=== PATIENT | male | born 1970 | race Caucasian/White ===

== ENCOUNTER → 2020-02-06 13:55 | Outpatient (BNVA) | payer OTHER, SELFPAY | PROVIDERS: Visit Provider Physician Assistant | DX: M17.31 Unilateral post-traumatic osteoarthritis, right knee (principal); T14.90XS Injury, unspecified, sequela | CPT/HCPCS: 20610; 99212; J1020 ==

== ENCOUNTER → 2020-03-12 13:54 | Outpatient (BNVA) | payer OTHER, SELFPAY | PROVIDERS: PCP Internal Medicine; Visit Provider Physician Assistant | DX: M17.31 Unilateral post-traumatic osteoarthritis, right knee (principal) | CPT/HCPCS: 99212 ==

== ENCOUNTER 2020-04-15 12:57 | Outpatient (REF) | payer BC, SELFPAY | END 2020-04-15 12:58 | disposition home or self-care (01) | LOC: HO.LAB 12:57 | PROVIDERS: Visit Provider Internal Medicine | DX: Z20.828 Contact with and (suspected) exposure to other viral communicable diseases (principal) | CPT/HCPCS: 36415; C9803; U0003 ==

== ENCOUNTER 2020-04-16 17:36 | Outpatient (REF) | payer OTHER, BC, SELFPAY ==
--- NOTE | 2020-04-16 17:38 | MR_ITS ---
EXAMINATION: MR KNEE WITHOUT CONTRAST, RIGHT CLINICAL INFORMATION: M17.31 - Unilateral post-traumatic osteoarthritis, right knee. Medial pain with surgery on 11/11/2019. COMPARISON: Radiographs dated 11/14/2019 TECHNIQUE: MRI of the knee without contrast was performed using routine sequences on a high-field scanner. FINDINGS: MENISCI: Medial Meniscus: There is a radially-oriented tear at the junction of the body and posterior horn with a subtle horizontal component extending to the meniscal body. The radial tear spares the free edge margin, primarily involving the superior third of the meniscal cross-section. There is 2.5 x 1.5 x 0.9 cm multilocular cyst arising at the anterior root insertion. Lateral Meniscus: Intact. LIGAMENTS: Cruciate: Intact. Collateral: Intact. EXTENSOR MECHANISM: Patellar enthesopathic spurs are present at the quadriceps tendon insertion and patellar tendon origin. No tendinosis. Quadriceps and patellar tendons are intact. ARTICULAR CARTILAGE/BONE: Patellofemoral Compartment: A full-thickness chondral fissure is present at the medial patellar facet, measuring 6 mm in length. Small marginal osteophytes are present. Mild nonuniform chondral thinning is evident at the lateral patellar facet and at the central trochlear groove with full-thickness chondral fissuring at the medial patellar facet. Medial Compartment: At the medial femoral condyle weightbearing surface, there is a 2 x 1 cm area of full-thickness chondral fissuring, partial-thickness chondral delamination, and partial-thickness cartilage loss with more mild surrounding chondral thinning. Mild chondral thinning is also present in the medial tibial plateau. Small marginal osteophytes. Lateral Compartment: Normal. JOINT FLUID AND BURSAE: Trace joint effusion. No Arenas's cyst. MR/MR knee RT wo con IMPRESSION: 1. Mildly complex radial tear at the junction of the posterior horn and body of the medial meniscus. 2. Mild medial and minimal patellofemoral compartment osteoarthritis. 3. Trace joint effusion.
== END 2020-04-16 17:37 | disposition home or self-care (01) ==
LOC: HO.MRI 17:36
PROVIDERS: Visit Provider Physician Assistant
DX: M17.31 Unilateral post-traumatic osteoarthritis, right knee (principal)
CPT/HCPCS: 73721

== ENCOUNTER 2020-04-20 11:22 | Emergency (ER) | payer BC, SELFPAY ==
--- NOTE | 2020-04-20 11:31 | XR_ITS ---
EXAMINATION: XR CHEST CLINICAL INFORMATION: Cough COMPARISON: None TECHNIQUE: Frontal view of the chest was obtained. FINDINGS: No significant abnormality is noted involving the heart, lungs, mediastinum, bony thorax or soft tissues. XR/XR chest 1V IMPRESSION: Unremarkable examination.
--- NOTE | 2020-04-20 11:31 | ED.URI ---
HPI - URI/Sore Throat General Chief Complaint: Dyspnea Stated Complaint: Cough Time Seen by Provider: 04/20/20 11:31 Source: patient Mode of arrival: ambulatory Limitations: no limitations History of Present Illness HPI Narrative: States he was here 5 days ago got COVID test for mild body aches those symptoms improve still waiting for COVID test results and ever since then he has had a cough with associated aches and pains. MD elicited complaint: cough Severity: moderate Exacerbating factors: nothing Treatments prior to arrival: none Related Data Home Medications Medication Instructions Recorded Confirmed atorvastatin 20 mg tablet 20 mg PO DAILY 02/06/20 lisinopril 5 mg tablet 5 mg PO DAILY 02/06/20 metformin 500 mg tablet 500 mg PO DAILY 02/06/20 Previous Rx's Medication Instructions Recorded celecoxib 200 mg capsule 200 mg PO DAILY 30 Days #30 cap 03/12/20 albuterol sulfate 2.5 mg INHALATION Q4-6H PRN #15 ml 04/20/20 azithromycin [Zithromax Z-Jakob] 250 mg PO DAILY 5 Days #6 tab 04/20/20 prednisone 40 mg PO DAILY 5 Days #10 tab 04/20/20 Allergies Allergy/AdvReac Type Severity Reaction Status Date / Time pollen extracts [POLLEN] Allergy Unknown UNK Verified 03/12/20 14:12 Review of Systems Review of Systems: Constitutional: No Weight loss, No Fever, No Chills, No Night Sweats, No Fatigue, No Malaise ENT/Mouth: No Hearing loss, No Ear Pain, No Nasal Congestion, No Sinus Pain, No Hoarseness, No sore throat, No Rhinorrhea, No Swallowing Difficulty Eyes: No Eye Pain, No Swelling, No Redness, No Foreign Body, No Discharge, No Vision Changes Cardiovascular: No Chest Pain, No SOB, No Dyspnea on Exertion, No Orthopnea, No Edema, No Palpitations Respiratory: + Cough, No Sputum, No Wheezing, No Smoke Exposure, No Dyspnea Gastrointestinal: No Nausea, No Vomiting, No Diarrhea, No Constipation, No abdominal Pain Genitourinary: no irregular bleeding, No Dysuria, No Urinary Frequency, No Hematuria, No Urinary Incontinence, No Urgency, No Flank Painy Musculoskeletal: No joint pain, No Myalgias, No Joint Swelling Skin: No Skin Lesions, No rash Neuro: No Headache Psych: No Social Issues Heme/Lymph: No Bruising, No Bleeding,No Lymphadenopathy Endocrine: No Polyuria, No Polydipsia, No Temperature Intolerance Yes all other systems are reviewed and are negative [facility] Past Medical History Medical History (Updated 04/20/20 @ 15:16 by César Martinez NP) High cholesterol HTN (hypertension) Prediabetes Surgical History History of hernia repair Social History Social History Smoking Status: Never smoker Advance Directives: No Advance Directives Information Provided: No Current occupational status: unemployed Current occupation: Right Handed Physical Exam Vital Signs: Vital Signs: Last Vital Signs Temp 98.1 F 04/20/20 12:00 Pulse 88 04/20/20 12:00 Resp 18 04/20/20 12:00 BP 122/80 04/20/20 12:00 Pulse Ox 98 04/20/20 12:00 Body Mass Index 43.8 Reviewed Const: General: cooperative and healthy appearing; No acute distress or intoxicated appearing Nutritional Appearance: average body habitus Orientation/consciousness: patient oriented x3 HENMT: Head: Yes normal to inspection Ears: hearing grossly normal bilaterally Eyes: General: appearance normal, both eyes and all related structures Visual Nassar: normal visual nassar by confrontation Neck: Neck: Yes normal visual inspection and No tender Thyroid: Thyroid normal Chest: Chest palpation & inspection: normal inspection of the chest Resp: Other: Positive Dry bronchial cough. Effort & Inspection: normal respiratory effort Auscultation: clear to auscultation bilaterally Cardio: Jugular venous distension: no JVD Rate: regular rate Rhythm: regular rhythm Heart sounds: S1 normal heart sound present and S2 normal heart sound present GI: Inspection: Yes normal to inspection Percussion: Yes normal to percussion Auscultation: normal bowel sounds : General: Yes no CVA tenderness Back/Spine/Pelvis: Back: no CVA tenderness Skin: General skin exam: no rashes or lesions noted Neuro: General: patient oriented x3 Extrem: General: Yes normal to inspection Course Course Course Narrative: Well nontoxic appearing. MDM - URI/Sore Throat Differential Diagnosis Differential diagnosis: Likely upper respiratory infection, viral infection, bronchitis and influenza; Unlikely croup, otitis media, sinusitis and pharyngitis Medical Records Attestation: I reviewed the patient's medical records. Lab Data Attestation: I reviewed the patient's lab results. 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 FINDINGS: No significant abnormality is noted involving the heart, lungs, mediastinum, bony thorax or soft tissues. XR/XR chest 1V IMPRESSION: Unremarkable examination. Dictated By: STEVIE HASTINGS MD Signed By: <Electronically signed by STEVIE HASTINGS MD in OV> 04/20/20 1239 DD/ 1131 TD/TT: Bundle Clerk: TEJAS Discharge Plan Discharge Clinical Impression: Upper respiratory infection Patient Disposition: Home, Self-Care Additional Instructions: Based on your symptoms and history we have sent a COVID-19. Although your RESULT IS PENDING at this time. RESULTS should return within 72 hours. At this time you will be contacted with either NEGATIVE OR POSITIVE results. -Please wait until we contact you for your results. At this time you will be okay for discharge. Please plan for self quarantine for up to 14 days. Do not expose yourself to others. You may not go to work. If testing does come back negative you may return to activities as long as you are no longer having any symptoms for at least 3 days. Please continue to follow cold instructions and wash your hands frequently. You may take Tylenol as directed on the bottle for pain or fever. Patient seen in the emergency department and should be excused from work until negative test results AND until 72 hours without any symptoms AND at least 10 days have passed since symptoms first appeared or since last exposure to COVID-19 positive patient CDC Guidelines for home isolation: - Stay away from others - WEAR A MASK if you are sick AND STAY HOME - Cover your mouth and nose with a tissue when you cough or sneeze. Dispose of tissues in a lined trash can and wash your hands immediately with soap and water for at least 20 seconds. If soap and water are not available, clean hands with alcohol-based hand chef teacher that contains at least 60% alcohol. - Clean your hands often with soap and water for at least 20 seconds - Avoid touching your eyes, nose and mouth with unwashed hands - Do not share dishes, drinking glasses, cups, eating utensils, towels, or bedding with other people in your home. After using these items, wash them thoroughly with soap and water or put in the shell shop supervisor. - Clean high-touch surfaces in your isolation area ( sick room and bathroom) every day; let a caregiver clean and disinfect high-touch surfaces in other areas of the home. Clean the area or item with soap and water or another detergent if it is dirty. Then, use a household disinfectant. - Limit contact with pets and animals: If you must care for a pet, wash your hands before and after interacting with them) Prescriptions: New azithromycin [Zithromax Z-Jakob] 250 mg tablet 250 mg PO DAILY 5 Days Qty: 6 RF: 0 prednisone 20 mg tablet 40 mg PO DAILY 5 Days Qty: 10 RF: 0 albuterol sulfate 2.5 mg /3 mL (0.083 %) solution for nebulization 2.5 mg inhalation Q4-6H PRN (Reason: shortness of breath or wheezing) Qty: 15 RF: 0 No Action celecoxib [Celebrex] 200 mg capsule 200 mg PO DAILY 30 Days Qty: 30 RF: 3 Referrals: ED Physician,Generic [Emergency Provider] - 1 week
[2020-04-20 11:32] VITALS: BP 117/78; PULSE 81; RESP 20; TEMP 36.7; O2SAT 96; BMI 43.8
[2020-04-20 12:00] VITALS: BP 122/80; PULSE 88; RESP 18; TEMP 36.7; O2SAT 98
== END 2020-04-20 15:39 | disposition home or self-care (01) ==
PROVIDERS: Emergency Provider Emergency Medicine
DX: J06.9 Acute upper respiratory infection, unspecified (principal); Z20.828 Contact with and (suspected) exposure to other viral communicable diseases; I10 Essential (primary) hypertension; R73.03 Prediabetes
CPT/HCPCS: 71045; 99283

== ENCOUNTER 2020-05-04 11:23 | Outpatient (REF) | payer BC, SELFPAY | END 2020-05-04 11:24 | disposition home or self-care (01) | LOC: HO.LAB 11:23 | PROVIDERS: Visit Provider Internal Medicine | DX: Z20.822 Contact with and (suspected) exposure to COVID-19 (principal) | CPT/HCPCS: 36415; C9803; U0003 ==

== ENCOUNTER → 2020-05-14 14:30 | Outpatient (BNVA) | payer BC, SELFPAY | PROVIDERS: Visit Provider Physician Assistant ==

== ENCOUNTER 2020-06-03 08:54 | Day surgery (SDC) | payer OTHER, SELFPAY ==
[2020-05-27 20:02] VITALS: BMI 43.8
--- NOTE | 2020-06-02 09:59 | HO.ANESPROP2 ---
Documented by User: Migdalia Cabral 06/02/20 10:01 HPI - Anesthesia Eval Consult details Narrative: 49yo M for Right Knee Arthroscopy [facility] Active Problems Active Problems: All Active Problems (Updated 05/27/20 @ 20:14 by Yessi Schneider RN) Post-traumatic osteoarthritis of right knee (Acute) Acute medial meniscus tear of right knee (Acute) Past Medical History Medical History Back pain Diabetes GERD (gastroesophageal reflux disease) High cholesterol HTN (hypertension) Sleep apnea Surgical History Surgical History History of colonoscopy History of hernia repair Social History Social History Smoking Status: Never smoker Use of substances other than those prescribed or required for medical reasons: Yes Substance Use Frequency: Occasionally Advance Directives: No Advance Directives Information Provided: No Advance Directives on File: No Current occupational status: unemployed Current occupation: Right Handed Meds Allergies Allergy/AdvReac Type Severity Reaction Status Date / Time pollen extracts [POLLEN] Allergy Unknown UNK Verified 05/27/20 20:02 Home Medications Medication Instructions Recorded Confirmed Last Taken Type atorvastatin 20 mg tablet 20 mg PO DAILY 02/06/20 05/27/20 Unknown History metformin 500 mg tablet 500 mg PO DAILY 02/06/20 05/27/20 Unknown History lisinopril 1 tab PO DAILY 05/27/20 05/27/20 Unknown History Exam Exam Date and Time: June 02, 2020 0959 Height,Weight and Vital Signs: Height 5 ft 7 in Weight 127.006 kg Assessment and Plan Assessment Anesthesia Assessment: Chart Reviewed Documented by User: Clare Miller 06/03/20 10:34 PMFSH Past Medical History Medical History Back pain Diabetes GERD (gastroesophageal reflux disease) High cholesterol HTN (hypertension) Sleep apnea Surgical History Surgical History History of colonoscopy History of hernia repair Social History Social History Smoking Status: Never smoker Use of substances other than those prescribed or required for medical reasons: Yes Substance Use Frequency: Occasionally Advance Directives: No Advance Directives Information Provided: No Advance Directives on File: No Current occupational status: unemployed Current occupation: Right Handed Meds Allergies Allergy/AdvReac Type Severity Reaction Status Date / Time pollen extracts [POLLEN] Allergy Unknown UNK Verified 05/27/20 20:02 Home Medications Medication Instructions Recorded Confirmed Last Taken Type atorvastatin 20 mg tablet 20 mg PO DAILY 02/06/20 05/27/20 Unknown History metformin 500 mg tablet 500 mg PO DAILY 02/06/20 05/27/20 Unknown History lisinopril 1 tab PO DAILY 05/27/20 05/27/20 Unknown History Exam Airway Mallampati Class: II TM Dist: >3cm Neck ROM: Full Assessment and Plan Assessment Anesthesia Assessment: Anesthesia Plan Discussed and Chart Reviewed Final Anesthetic Review NPO: Yes ASA Class: III Final Preanesthetic Review: No Changes in Pt Med Stat, Meds/Allgs Chart Reviewed, Consent Obtained/Reviewed and Anes Risks/Benef Reviewed Patient Risk: Intermediate Procedure Risk: Low Assessment/Block/Sedation in SS: Assess/Block/Sedation-SS Anesthetic Plan Anesthetic Plan: GA Disposition: Standard PACU
[2020-06-03] VITALS (10 sets, daily range): BP systolic 92–138; BP diastolic 55–74; PULSE 62–77; RESP 14–20; TEMP 36.6–36.9; O2SAT 95–99
[2020-06-03 09:27] LABS: Glucose, Whole Blood 265 mg/dL (60-115)
[2020-06-03] MEDS: Lactated Ringers 1,000 ML 100 ML IVCONT (09:49)
--- NOTE | 2020-06-03 10:35 | P.CONAN_ITS ---
[facility] Active Problems Active Problems: All Active Problems (Updated 06/02/20 @ 10:00 by Migdalia palacios) Post-traumatic osteoarthritis of right knee (Acute) Acute medial meniscus tear of right knee (Acute) Past Medical History Medical History Back pain Diabetes GERD (gastroesophageal reflux disease) High cholesterol HTN (hypertension) Sleep apnea Surgical History Surgical History History of colonoscopy History of hernia repair Social History Social History Smoking Status: Never smoker Use of substances other than those prescribed or required for medical reasons: Yes Substance Use Frequency: Occasionally Advance Directives: No Advance Directives Information Provided: No Advance Directives on File: No Current occupational status: unemployed Current occupation: Right Handed Meds Allergies Allergy/AdvReac Type Severity Reaction Status Date / Time pollen extracts [POLLEN] Allergy Unknown UNK Verified 05/27/20 20:02 Active Medications: Current Medications Generic Name Dose Route Start Last Admin Trade Name Freq PRN Reason Stop Dose Admin Lactated Ringer's 1,000 mls @ 100 mls/hr 06/03/20 09:00 06/03/20 09:49 Lr IVCONT 100 mls/hr .Q10H KRISTY Administration Home Medications Medication Instructions Recorded Confirmed Last Taken Type atorvastatin 20 mg tablet 20 mg PO DAILY 02/06/20 05/27/20 Unknown History metformin 500 mg tablet 500 mg PO DAILY 02/06/20 05/27/20 Unknown History lisinopril 1 tab PO DAILY 05/27/20 05/27/20 Unknown History Exam Exam Date and Time: June 03, 2020 1035 Height,Weight and Vital Signs: Height 5 ft 7 in Weight 127.006 kg Last Vital Signs Temp 98.5 F 06/03/20 09:17 Pulse 77 06/03/20 09:17 Resp 20 06/03/20 09:17 BP 138/74 06/03/20 09:17 Pulse Ox 95 06/03/20 09:17 Pertinent Lab Results Pertinent Lab Results: Laboratory Tests 06/03/20 09:24 POC Glucose 265 H Airway Mallampati Class: III TM Dist: >3cm Neck ROM: Limited Assessment and Plan Assessment Anesthesia Assessment: Anesthesia Plan Discussed and Chart Reviewed Final Anesthetic Review NPO: Yes ASA Class: III Final Preanesthetic Review: No Changes in Pt Med Stat, Meds/Allgs Chart Reviewed, Consent Obtained/Reviewed and Anes Risks/Benef Reviewed Patient Risk: Intermediate Procedure Risk: Low Assessment/Block/Sedation in SS: Assess/Block/Sedation-SS Anesthetic Plan Anesthetic Plan: GA Disposition: Standard PACU
--- NOTE | 2020-06-03 11:44 | PM.OP ---
Brief Operative Note Date of Service: 06/03/20 Pre-op diagnosis: Right knee medial meniscus tear Post-op diagnosis: other (1) medial meniscus tear 2) osteoarthritis) Procedure: right knee as with partial medial meniscectomy and chondroplasty Implants: none Surgeon: William Tejeda MD Anesthesia: GETA and local Estimated blood loss (mL): 5 Tourniquet time (min): 13 IV fluids (mL): 500 Pathology: none sent Condition: stable Disposition: PACU
--- NOTE | 2020-06-03 11:46 | W.PM.OPN ---
Operative Note Operative Note Date of Service: 06/03/20 Narrative: Pre-op diagnosis: Right knee medial meniscus tear Post-op diagnosis: same Procedure: Right knee with partial medial meniscectomy and chondroplasty Implants: none Adult Literacy Instructor: none Anesthesia: GETA and local Estimated blood loss (mL): 5 Tourniquet time (min):13 IV fluids (mL): 500 Pathology: none sent Condition: stable Disposition: PACU Procedure in detail: Patient was brought to the operating room placed supine on the arthroscopic table and prepped and draped in standard sterile fashion. A time-out was called to identify proper site proper procedure proper surgeon and IV antibiotics per weight were administered. I began by exsanguinating the limb and insufflating tourniquet to 300 mm Hg. Then made a standard anterolateral stab incision. knee was insufflated with water and 30 degree arthroscope was placed. There was grade 1 fibrillations of the patella and G4 area of cartilage loss in the central tochlea measuring 5 mm is diameter and 10 mm in length. The suprapatellar pouch was clean and the gutters were clean. I descended into the medial compartment where I made my medial portal under direct visualization. There was obvious of complex tear of the body and posterior horn of the medial meniscus. Root was intact and there was grade 1 changes of the tibia and with a G4 lesion of the weight bearing portion of the MFC measuring 20mm x 10 mm. I used a combination of biter shaver and cautery to remove unstable portions of the meniscus. The loose chondral tissue was similarly debrided. Aproximately 40% meniscal volume was removed. Once I was happy with this the ACL was examined and found to be intact and the lateral compartment also was without the need for intervention. I then removed all instrumentation and closed the portals with skin glue. 25 mL of 2% Marcaine with epinephrine was injected into the joint and the surrounding soft tissues. Patient was then placed in sterile dressing extubated brought recovery room stable condition. There were no known complications.
[2020-06-03] MEDS: oxyCODONE HCl Immed Release 5 MG TABLET PO (12:07)
[2020-06-03] MEDS: Acetaminophen 325 MG TABLET 650 MG PO (12:08)
[2020-06-03] MEDS: fentaNYL citrate/PF 100 MCG/2 ML VIAL 50 MCG IVPUSH ×2 (12:08→12:13)
== END 2020-06-03 13:14 | disposition home or self-care (01) ==
PROVIDERS: PCP Orthopaedic Surgery; Visit Provider Orthopaedic Surgery
PROC: (CPT 29870; principal; 2020-06-03 11:00)
DX: S83.231A Complex tear of medial meniscus, current injury, right knee, initial encounter (principal); X58.XXXA Exposure to other specified factors, initial encounter; Y93.9 Activity, unspecified; Y92.9 Unspecified place or not applicable; Y99.8 Other external cause status
CPT/HCPCS: 29881; 82947; J0171; J0690; J1100; J1885; J2405; J3010

== ENCOUNTER → 2020-06-18 10:21 | Outpatient (BNVA) | payer OTHER, SELFPAY | PROVIDERS: PCP Orthopaedic Surgery; Visit Provider Physician Assistant | DX: M17.31 Unilateral post-traumatic osteoarthritis, right knee (principal); S83.241D Other tear of medial meniscus, current injury, right knee, subsequent encounter | CPT/HCPCS: 99212 ==

== ENCOUNTER → 2020-07-30 14:02 | Outpatient (BNVA) | payer OTHER, SELFPAY | PROVIDERS: Visit Provider Orthopaedic Surgery | DX: Z47.89 Encounter for other orthopedic aftercare (principal); S83.241D Other tear of medial meniscus, current injury, right knee, subsequent encounter; M17.31 Unilateral post-traumatic osteoarthritis, right knee | CPT/HCPCS: 99212 ==

== ENCOUNTER → 2020-09-17 10:06 | Outpatient (BNVA) | payer OTHER, SELFPAY | PROVIDERS: Visit Provider Orthopaedic Surgery | DX: M17.31 Unilateral post-traumatic osteoarthritis, right knee (principal) | CPT/HCPCS: 99212 ==

== ENCOUNTER → 2020-11-05 10:50 | Outpatient (BNVA) | payer OTHER, SELFPAY | PROVIDERS: Visit Provider Orthopaedic Surgery | DX: M17.31 Unilateral post-traumatic osteoarthritis, right knee (principal) | CPT/HCPCS: 99212 ==